=== PATIENT | male | born 1980 | race Caucasian/White ===

== ENCOUNTER 2019-06-18 07:01 | Emergency (ER) | payer BC, SELFPAY ==
--- NOTE | ~2019-06-18 | CT_ITS ---
EXAMINATION: CTA chest PE protocol DATE: 06/18/2019 08:10 INDICATION: Chest and upper back pain, wheezing TECHNIQUE: Computed tomography angiography (CTA) of the chest was performed with 100 mL Omnipaque-350 intravenous contrast timed to evaluate the pulmonary arteries. Coronal maximum intensity projection 3D-reconstructions were created by the technologist. The dose-length product (DLP) was 831.25 mGy-cm. Automated exposure control and iterative reconstruction technique were employed. COMPARISON: None. FINDINGS: The pulmonary arteries are well-opacified. No pulmonary embolism is identified. There is a 2.1 x 1.9 cm nodular opacity in the left lower lobe. There is a 6 mm nodule in association with the l eft major fissure on image 54. There is no pleural effusion or pneumothorax. Calcified pulmonary nodu les and calcified left hilar and mediastinal lymph nodes are consistent with old granulomatous diseas e. No pathologically enlarged thoracic lymph nodes are identified. The heart size is normal. Punctate calcifications in an otherwise normal spleen likely represent healed granulomatous disease. IMPRESSION: 1. Left lower lobe nodule, likely infectious/inflammatory. Recommend follow-up CT in three months. 2. No pulmonary embolism. Reviewed, dictated and finalized at location A.
--- NOTE | ~2019-06-18 | XR_ITS ---
EXAMINATION: XR chest 1V portable INDICATION: Chest and upper back pain TECHNIQUE: Portable AP chest at 0742 hours COMPARISON: 12/30/2018 FINDINGS: The lungs are free of acute opacities. There is no pleural effusion or pneumothorax. The ca rdiomediastinal silhouette is normal. The visualized bones and soft tissues are unremarkable. IMPRESSION: 1. No acute cardiopulmonary abnormality. Reviewed, dictated and finalized at location A.
[2019-06-18 07:05] VITALS: BP 155/97; PULSE 75; RESP 16; TEMP 36.6; O2SAT 97
--- NOTE | 2019-06-18 07:17 | ECG_ITS ---
Measurements Intervals [place] Rate: 71 P: 64 [place]: 134 QRS: 30 QRSD: 85 T: 30 QT: 377 QTc: 412 Interpretive Statements SINUS RHYTHM NORMAL ECG Electronically Signed On 06-18-2019 8:34:51 CDT by Phil Olivera D.O.
--- NOTE | 2019-06-18 07:19 | ED.CHESTPAIN ---
HPI - Chest Pain General Chief Complaint: Chest Pain Stated Complaint: cp, back pain Time Seen by Provider: 06/18/19 07:05 History of Present Illness HPI narrative: Patient presents via personal car for neck upper back and chest pain for 3 days. Started 3 days ago when he awoke from sleep. Mostly in his neck, but radiates down to the shoulder blades and around to the left chest. Pain in the neck and upper back is 8 out of 10, and when it goes to the chest at 7 or 8 out of 10. He has had no injury or new physical activity. He did not lift something heavy. He thought initially it might be the way he slept. 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 He has a baseline light cough and wheezing, for a year. His doctor suspects it may be a little asthma. He was to have a methacholine challenge before the COVID restrictions started. He has not had fever or chills. No vomiting nausea or diarrhea. He has not smoked cigarettes in 15 years still drinks alcohol does not do marijuana. He has not been sick in the last week or 2. He does not have the chest pain now. Related Data Home Medications Medication Instructions Recorded Confirmed omeprazole 40 mg DAILY 12/30/18 12/30/18 fluticasone propionate 50 2 spray NASAL DAILY 03/21/19 mcg/actuation nasal spray,suspension loratadine 10 mg tablet 10 mg PO DAILY 03/21/19 multivitamin 1 tablet PO DAILY 03/21/19 Allergies Allergy/AdvReac Type Severity Reaction Status Date / Time No Known Allergies Allergy Verified 06/18/19 08:23 Review of Systems Review of Systems: Narrative: CONSTITUTIONAL: Denies fever, chills, or sweats. EYES: Denies visual changes, redness, or discharge. ENT: Denies rhinorrhea, congestion, sore throat, or otalgia. CARDIOVASCULAR: Denies palpitations, or edema. RESPIRATORY: Denies dyspnea. GASTROINTESTINAL: Denies abdominal pain, nausea, vomiting, or diarrhea. GENITOURINARY: Denies dysuria or hematuria. SKIN: Denies rash or itching. MUSCULOSKELETAL: Denies joint pain, or myalgia. NEUROLOGIC: Denies headache, numbness, or weakness. PSYCHIATRIC: Denies anxiety or depression. [facility] Past Medical History Medical History Cough GERD (gastroesophageal reflux disease) HTN (hypertension) Wheezing Surgical History Surgical History H/O hernia repair H/O sinus surgery 10/2018 History of nasal septoplasty Family History Family History Mother Hypertension Father Family history of cardiovascular disease Family history of lung cancer Sibling Family history of malignant neoplasm of testis Social History Social History Smoking packs per day: 1 Smoking cigarettes per day: 20.0 Years smoked: 10 Smoking pack-years: 10.00 Smoking status: Former smoker Tobacco type: cigarettes Second hand tobacco smoke exposure: No Smoking end date: 02/07/06 Alcohol intake: current Drinks per week: 5 Substance use: never Substance use type: does not use Gender identity (if verbalized by the patient): Male Exam Narrative: Exam Narrative: GENERAL: Well-appearing, well-nourished, and in no acute distress.Shaved head, wearing a black mask. HEAD: Normocephalic, atraumatic. EYES: PERRLA and EOMI. ENT: Nares clear, no rhinorrhea or epistaxis. Mucous membranes moist. NECK: Supple. CHEST: Clear to auscultation. No respiratory distress. HEART: Regular rate and rhythm. No murmur heard. Normal peripheral pulses. ABDOMEN: Soft, nontender, nondistended, normal active bowel sounds. EXTREMITIES: Normal range of motion. No edema. SKIN: Warm, no rash, diaphoresis on his back. NEURO: No focal deficits. Alert and oriented x3. PSYCH: Normal mood and affect. Course Course Emergency Course: Reevaluation(s) Reevaluation #1: Discussed with the pat
[2019-06-18 07:27] LABS: Basophils Absolute Auto 0.1 K/mm3 (0.0-0.1); Basophils Percent Auto 0.7 % (0.2-1.2); Eosinophils Absolute Auto 0.8 K/mm3 (0-0.3); Eosinophils Percent Auto 8.7 % (0-4.4); Hematocrit 42.2 % (42.0-52.0); Hemoglobin 14.7 g/dL (14.0-18.0); Immature Granulocyte Absolute 0.01 K/mm3 (0.00-0.031); Immature Granulocyte Percent A 0.1 % (0-0.5); Lymphocytes Percent Auto 21.7 % (18.3-44.2); Mean Corpuscular HGB Conc 34.8 g/dl (32-36); Mean Corpuscular Hemoglobin 30.2 pg (26-34); Mean Corpuscular Volume 86.7 fl (80-100); Mean Platelet Volume 9.5 fl (7.4-10.4); Monocytes Absolute Auto 0.8 K/mm3 (0.1-0.6); Monocytes Percent Auto 8.6 % (2.6-8.5); Neutrophils Absolute Auto 5.3 K/mm3 (1.3-6.7); Neutrophils Percent Auto 60.2 % (45.5-73.1); Platelet Count Result 311 k/mm3 (150-375); Red Blood Count 4.87 M/mm3 (4.6-6.20); Red Cell Distribution Width 12.8 % (11.5-14.5); White Blood Count 8.8 K/mm3 (4.5-10.0)
[2019-06-18] MEDS: MORPHINE SULFATE 2 MG/ML INJ IV PUSH (07:27)
[2019-06-18 07:37] LABS: INR 0.9; Prothrombin Time 12.3 Seconds (11.1-14.7)
[2019-06-18 07:38] LABS: Partial Thromboplastin Time 27.4 SECONDS (22.3-36.8)
[2019-06-18 07:40] LABS: Alanine Aminotransferase 23 U/L (4-50); Albumin Level 4.8 g/dL (3.5-5.1); Alkaline Phosphatase 70 U/L (38-126); Aspartate Amino Transferase 27 U/L (17-59); Bilirubin,Total 0.7 mg/dL (0.2-1.3); Blood Urea Nitrogen 13 mg/dL (9-20); Calcium 9.3 mg/dL (8.4-10.2); Carbon Dioxide 26 mmol/L (22-30); Chloride 106 mmol/L (98-107); Estimated CRCL calculation 124 ml/min; Estimated Glomerular Filt Rate > 60; Glucose 112 mg/dL (75-110); Potassium 3.8 mmol/L (3.4-5.0); Sodium 141 mmol/L (137-145)
[2019-06-18 07:44] LABS: D Dimer 0.27 ug/mL (<0.48)
[2019-06-18 07:52] LABS: NT Pro B Type Natriuretic Pept 142 PG/ML (5-100); Troponin I < 0.012 ng/mL (0.000-0.034)
[2019-06-18 08:30] VITALS: BP 145/96; PULSE 71; RESP 16; O2SAT 98
[2019-06-18 09:20] VITALS: BP 136/91; PULSE 71; RESP 16; O2SAT 97
== END 2019-06-18 09:20 | disposition home or self-care (01) ==
PROVIDERS: Emergency Provider Emergency Medicine; PCP Family Medicine
DX: M54.2 Cervicalgia (principal); M54.6 Pain in thoracic spine; R07.9 Chest pain, unspecified; R91.1 Solitary pulmonary nodule; K21.9 Gastro-esophageal reflux disease without esophagitis; I10 Essential (primary) hypertension; Z87.891 Personal history of nicotine dependence
CPT/HCPCS: 36415; 71045; 71275; 80053; 83880; 84484; 85025; 85380; 85610; 85730; 93005; 96374; 99284; J2270; Q9967

== ENCOUNTER 2019-08-07 08:18 | Outpatient (CLI) | payer BC, SELFPAY ==
[2019-08-07] MEDS: SODIUM CHLORIDE 0.9% INJ 10 ML VIAL IV PUSH (10:33)
--- NOTE | 2019-08-08 14:30 | WPDPFTINT ---
PFT Interpretation PFT Interpretation: DOS: 08/06/2018 REQUESTING: Dr Alfonso Slaughter REASON FOR TESTING: wheezing, coughing, shortness of breath, former smoker METHACHOLINE CHALLENGE This test was conducted per ATS guidelines. A previous study on 07/26/2018 showed normal spirometry, FEV1 112% without airflow obstruction. The patient was exposed to sequentially increasing doses of methacholine in the usual manner. Level 1 - saline Level 2 - 0.025 mg Level 3 - 0.25 mg Level 4 - 2.5 mg Level 5 - 10 mg Level 6 - 25 mg The test was completed with all six doses of methacholine. He did not have a significant decrease in his FEV1, FVC, or XMI19-58% after administration of methacholine. Flow volume loops were normal. IMPRESSION: This is a negative methacholine challenge. The best use of a methacholine challenge is to exclude asthma. Clinical correlation is advised. Betzaida Mejias MD
== END 2019-08-07 08:19 | disposition home or self-care (01) ==
LOC: ANHPFT 08:19
PROVIDERS: PCP Family Medicine; Visit Provider Physician Assistant
DX: R06.2 Wheezing (principal); R05 Cough
CPT/HCPCS: 94070; J7674

== ENCOUNTER 2019-09-28 14:37 | Outpatient (CLI) | payer BC, SELFPAY ==
--- NOTE | ~2019-09-28 | CT_ITS ---
EXAMINATION: CT chest wo con DATE: 09/28/2019 15:20 INDICATION: Lung nodule TECHNIQUE: Computed tomography (CT) of the chest was performed without intravenous contrast. The dose -length product (DLP) was 276.30 mGy-cm. Automated exposure control and iterative reconstruction tech [employer] were employed. COMPARISON: 06/18/2019 FINDINGS: There has been interval decrease in size of previously described left lower lobe nodule whi ch measures 1.1 x 1.6 cm, previously 2.1 x 1.9 cm. Most of the interval decrease in size is related t o decrease in subpleural opacity. A stable 6 mm nodule is seen in association with the left major fis sure on image 56. There is no pleural effusion or pneumothorax. Calcified pulmonary nodules and calci fied left hilar and subcarinal lymph nodes are consistent with old granulomatous disease. No patholog ically enlarged thoracic lymph nodes are identified. The heart size is normal. Punctate calcification s in an otherwise normal spleen likely represent healed granulomatous disease. IMPRESSION: 1. Interval decrease in size of the previously described left lower lobe nodule, likely resolving inf ection/inflammation. Follow-up low-dose CT of the chest six months is recommended. Reviewed, dictated and finalized at location A. IMPRESSION: 1. Interval decrease in size of the previously described left lower lobe nodule , likely resolving infection/inflammation. Follow-up low-dose CT of the chest s ix months is recommended.
== END 2019-09-28 14:38 | disposition home or self-care (01) ==
PROVIDERS: PCP Family Medicine; Visit Provider Internal Medicine Critical Care Medicine
DX: R91.1 Solitary pulmonary nodule (principal)
CPT/HCPCS: 71250

== ENCOUNTER 2021-11-12 22:40 | Emergency (ER) | payer BC, SELFPAY ==
--- NOTE | ~2021-11-12 | XR_ITS ---
EXAMINATION: XR chest 2V DATE: 11/13/2021 00:27 INDICATION: Upper chest tightness TECHNIQUE: PA and lateral views of the chest are obtained. COMPARISON: 06/18/2019 FINDINGS: The lungs are free of acute opacities. No pleural effusion or pneumothorax. The cardiomedia stinal silhouette is normal. There is mild thoracic spondylosis. IMPRESSION: 1. No acute cardiopulmonary abnormality. Reviewed, dictated and finalized at location A.
[2021-11-12 22:44] VITALS: BP 144/77; PULSE 71; RESP 18; TEMP 36.5; O2SAT 97
[2021-11-13 01:02] LABS: Basophils Percent Auto 0.6 % (0.2-1.2); Eosinophils Absolute Auto 0.5 K/mm3 (0-0.3); Eosinophils Percent Auto 9.1 % (0-4.4); Hematocrit 38.4 % (42.0-52.0); Hemoglobin 12.7 g/dL (14.0-18.0); Immature Granulocyte Absolute 0.01 K/mm3 (0.00-0.031); Immature Granulocyte Percent A 0.2 % (0-0.5); Lymphocytes Absolute Auto 1.96 K/mm3 (0.9-3.2); Lymphocytes Percent Auto 39.7 % (18.3-44.2); Mean Corpuscular HGB Conc 33.1 g/dl (32-36); Mean Corpuscular Hemoglobin 28.9 pg (26-34); Mean Corpuscular Volume 87.5 fl (80-100); Mean Platelet Volume 9.4 fl (7.4-10.4); Monocytes Absolute Auto 0.5 K/mm3 (0.1-0.6); Monocytes Percent Auto 10.3 % (2.6-8.5); Neutrophils Percent Auto 40.1 % (45.5-73.1); Platelet Count Result 274 k/mm3 (150-375); Red Blood Count 4.39 M/mm3 (4.6-6.20); Red Cell Distribution Width 14.7 % (11.5-14.5); White Blood Count 4.9 K/mm3 (4.5-10.0)
--- NOTE | 2021-11-13 01:02 | ED.ALLEREA ---
HPI - Allergic Reaction General Chief complaint: Allergic Reaction <FELTON Caicedo Last Filed: 11/13/21 02:27> Stated complaint: allergic reaction <FELTON Caicedo Last Filed: 11/13/21 02:27> Time Seen by Provider: 11/13/21 00:05 <FELTON Caicedo Last Filed: 11/13/21 02:27> Source: patient <FELTON Caicedo Last Filed: 11/13/21 02:27> Mode of arrival: ambulatory <FELTON Caicedo Last Filed: 11/13/21 02:27> Limitations: no limitations <FELTON Caicedo Last Filed: 11/13/21 02:27> History of Present Illness HPI narrative: This is a 41 year old male that presents to the ER for a possible allergic reaction to seafood. Reports he ate a Po boy sandwich around 7pm. About an hour later he started to feel like he had swelling in the bottom of his face and reported making gurgling noises when he tried to sleep. He did take Benadryl 50mg. Reports allergy to lobster, but no other known seafood allergy. Denies swelling in the mouth or throat, or shortness of breath currently. <FELTON Caicedo Last Filed: 11/13/21 02:27> Related Data Home medications: Home Medications Medication Instructions Recorded Confirmed fluticasone propionate 50 2 spray intranasal DAILY 03/21/19 10/22/21 mcg/actuation nasal spray,suspension (Allergy Relief (fluticasone)) multivitamin (Multiple Vitamins 1 tablet PO DAILY 03/21/19 10/22/21 tablet) levocetirizine 5 mg tablet (Xyzal) 5 mg PO DAILY 07/17/19 10/22/21 <FELTON Caicedo Last Filed: 11/13/21 02:27> Allergies/adverse reactions: Allergies Allergy/AdvReac Type Severity Reaction Status Date / Time No Known Allergies Allergy Verified 11/12/21 23:48 <FELTON Caicedo Last Filed: 11/13/21 02:27> Review of Systems Review of Systems: CONSTITUTIONAL: Denies fever, chills, or sweats. RESPIRATORY: Denies dyspnea. GASTROINTESTINAL: Denies vomiting SKIN: Denies rash or itching. <Sandy Winters PA-C - Last Filed: 11/13/21 02:27> All systems reviewed & are unremarkable except as noted in HPI and below <FELTON Caicedo Last Filed: 11/13/21 02:27> PMFSH Past Medical History Medical History: Medical History Cough GERD (gastroesophageal reflux disease) HTN (hypertension) TRACI on CPAP Wheezing <FELTON Caicedo Last Filed: 11/13/21 02:27> Surgical History Surgical History: Surgical History H/O hernia repair H/O sinus surgery 10/2018 History of nasal septoplasty <FELTON Caicedo Last Filed: 11/13/21 02:27> Family History Family History: Family History Mother Hypertension Father Family history of cardiovascular disease Family history of lung cancer Sibling Family history of malignant neoplasm of testis <Sandy Winters PA-C - Last Filed: 11/13/21 02:27> Social History Social History: Social History Smoking packs per day: 1 Smoking cigarettes per day: 20.0 Years smoked: 10 Smoking pack-years: 10.00 Smoking status: Former smoker Tobacco type: cigarettes Second hand tobacco smoke exposure: No Smoking end date: 02/07/06 Alcohol intake: current Drinks per week: 5 Substance use: never Substance use type: does not use Gender identity (if verbalized by the patient): Male Sexual Orientation (if Verbalized by the Patient): Straight or Heterosexual <FELTON Caicedo Last Filed: 11/13/21 02:27> Exam Narrative: GENERAL: Well-appearing, well-nourished, and in no acute distress. HEAD: Normocephalic, atraumatic. EYES: EOMI. ENT: Nares clear, no rhinorrhea or epistaxis. Mucous membranes moist. Oropharynx without tonsillar hypertrophy exudate or other lesions. Bilateral TMs pearly
[2021-11-13 01:13] LABS: Anion Gap 10 mmol/L (8-16); Blood Urea Nitrogen 16 mg/dL (9-20); Calcium 8.8 mg/dL (8.4-10.2); Carbon Dioxide 24 mmol/L (22-30); Chloride 107 mmol/L (98-107); Estimated CRCL calculation 110 ml/min; Estimated Glomerular Filt Rate > 60; Glucose 114 mg/dL (65-110); Potassium 3.8 mmol/L (3.4-5.0); Sodium 141 mmol/L (137-145)
[2021-11-13 01:22] LABS: NT Pro B Type Natriuretic Pept < 11 pg/mL (5-100)
[2021-11-13] MEDS: FAMOTIDINE 20 MG/2 ML VIAL IV PUSH (01:37)
[2021-11-13] MEDS: methylPREDNISolone SOD SUCC 125 MG VIAL IV PUSH (01:38)
== END 2021-11-13 02:34 | disposition home or self-care (01) ==
PROVIDERS: Physician Assistant; Emergency Provider Emergency Medicine; PCP Family Medicine
DX: T78.1XXA Other adverse food reactions, not elsewhere classified, initial encounter (principal); R22.0 Localized swelling, mass and lump, head; I10 Essential (primary) hypertension; K21.9 Gastro-esophageal reflux disease without esophagitis; G47.33 Obstructive sleep apnea (adult) (pediatric); Z91.013 Allergy to seafood; Z87.891 Personal history of nicotine dependence
CPT/HCPCS: 36415; 71046; 80048; 83880; 85025; 96374; 96375; 99284; J2930

== ENCOUNTER 2021-11-23 07:25 | Observation (INO) | payer BC, SELFPAY ==
[2021-11-23] VITALS (28 sets, daily range): BP systolic 128–150; BP diastolic 72–96; PULSE 50–80; RESP 8–18; TEMP 35.7–36.5; O2SAT 95–100; BMI 29.3
--- NOTE | 2021-11-23 | ECHO_ITS ---
Patient Info Name: Gelacio Warner Age: 41 years : 1980 Gender: Male Ht: 78 in Wt: 253 lbs BSA: 2.53 m2 HR: 55 bpm BP: 141 / 84 mmHg Heart Rhythm: Sinus Rhythm, Bradycardia Technical Quality: Good Exam Date: 11/23/2021 1:45 PM Exam Location: [facility] Exam Room: [facility] Patient Status: Inpatient Admit Date: 11/23/2021 Staff Ordering Physician: Kylie Castillo APRN Lending Advisor: Cydney Mccormack RDCS Attending Provider: Dirk Mei MD Referring Physician: Jonathan FALL; Exam Type: CA echo doppler w bubble study Study Info Indications - STROKE PROTOCOL Complete two-dimensional, color flow and Doppler transthoracic echocardiogram is performed with agitated saline. Contrast/Agitated Saline Contrast/Ag. Saline: Agitated Saline Amount: 20.00 ml Administered By: Clayton Buckley ANDREA Summary 1. Left ventricular systolic function is normal, estimated at 55-60%. 2. The left ventricular diastolic function is grade I diastolic dysfunction. 3. Intact interatrial septum visualized by color flow and agitated saline imaging. 4. No significant valvular disease. Left Ventricle Left ventricular chamber dimension is normal. Left ventricular systolic function is normal, estimated at 55-60%. There is no increased left ventricular wall thickness. The left ventricular diastolic function is grade I diastolic dysfunction. Right Ventricle Right ventricular chamber dimension is normal. Left Atria Left atrial chamber dimension is normal. Right Atria Right atrial chamber dimension is normal. Atrial Septum Intact interatrial septum visualized by color flow and agitated saline imaging. Aortic Valve The aortic valve is probable trileaflet. There is no aortic valve stenosis. There is no aortic valve regurgitation. Pulmonic Valve The pulmonic valve is not well visualized. Mitral Valve The mitral valve has normal leaflets. There is no mitral valve stenosis. There is trace mitral valve regurgitation. Tricuspid Valve The tricuspid valve leaflets are normal. There is no significant tricuspid valve stenosis. There is trace tricuspid valve regurgitation. Pericardium/Pleural There is no pericardial effusion. Inferior Vena Cava Normal inferior vena cava with >50% collapse upon inspiration consistent with normal right atrial pressure, 3 mmHg. Left Ventricular Outflow Tract Name Value Normal LVOT 2D LVOT Diameter 2.1 cm LVOT Doppler LVOT Peak Gradient 5 mmHg LVOT Mean Gradient 3 mmHg LVOT VTI 23 cm LVOT VTI/AV VTI Ratio 0.8 LVOT Stroke Volume 79 ml LVOT CO 15.2 l/min LVOT CI 6.0 l/min/m2 Pulmonic Valve Name Value Normal
--- NOTE | ~2021-11-23 | XR_ITS ---
EXAMINATION: XR chest 2V DATE: 11/23/2021 08:00 INDICATION: Stroke protocol with left face and leg numbness TECHNIQUE: PA and lateral views of the chest were obtained. COMPARISON: Chest radiograph dated 11/13/2021 FINDINGS: A couple calcified nodules in the left lung along with calcified left hilar lymph nodes consistent wi th old granulomatous disease. No other airspace opacities, pulmonary edema, pleural effusion or pneum othorax. The cardiomediastinal silhouette is normal. Mild thoracic spondylosis. IMPRESSION: 1. No acute cardiopulmonary disease. Reviewed, dictated and finalized at location A.
--- NOTE | ~2021-11-23 | MR_ITS ---
EXAMINATION: MR brain/brain stem wo/w con DATE: 11/23/2021 16:03 INDICATION: Left facial numbness. TECHNIQUE: Magnetic resonance imaging (MRI) of the brain and brainstem was performed without and with 20 mL MultiHance intravenous contrast. COMPARISON: Head CT 11/23/2021 FINDINGS: There is no intracranial hemorrhage, acute infarction, or abnormal intracranial mass lesion . The ventricles are normal in size. There is extensive mucosal thickening in the paranasal sinuses. The orbits are normal. The mastoid air cells are normal. IMPRESSION: 1. Normal brain. 2. Chronic sinusitis. Reviewed, dictated and finalized at location B.
--- NOTE | ~2021-11-23 | CT_ITS ---
EXAMINATION: CT brain wo con DATE: 11/23/2021 07:55 INDICATION: Left face and left leg numbness. TECHNIQUE: Computed tomography (CT) of the head was performed without intravenous contrast. The mA wa s adjusted according to patient size. Iterative reconstruction technique was employed. The dose-lengt h product was 605.33 mGy-cm. COMPARISON: None FINDINGS: There is no intracranial hemorrhage, acute infarction, or abnormal intracranial mass lesion . The ventricles are normal in size. There are no pathologically enlarged lymph nodes. There is exten sive mucosal thickening in the paranasal sinuses with sclerosis of the sinus rene, consistent with c hronic sinusitis. The mastoid air cells are normal. There are no pathologically enlarged lymph nodes. IMPRESSION: 1. Normal brain. 2. Chronic sinusitis. Reviewed, dictated and finalized at location B.
--- NOTE | ~2021-11-23 | US_ITS ---
EXAMINATION: US carotid duplex BI DATE: 11/23/2021 16:31 INDICATION: Stroke. Left facial numbness. TECHNIQUE: Grayscale, color Doppler, and pulsed Doppler images of the cervical carotid arteries were obtained. The degree of vessel stenosis is placed in one of the following categories: normal, <50%, 5 0-69%, >=70% but less than near-occlusion, near-occlusion, or total occlusion. Note that percent sten osis relative to normal distal artery lumen diameter is indirectly measured from velocity measurement s as described by Adonay, et al. Radiology 2003; [id number]:340-346. COMPARISON: chest CT 06/18/19 FINDINGS: RIGHT: The right common carotid artery (CCA) peak systolic velocity (PSV) is 137 cm/s. The right internal ca rotid artery (ICA) PSV is 111 cm/s. The right ICA end-diastolic velocity (EDV) is 25 cm/s. The right ICA/CCA PSV ratio is 0.8. Grayscale and color Doppler images yield an estimate of <50% diameter reduc tion from plaque in the ICA. There is antegrade flow in the right vertebral artery. LEFT: The left CCA PSV is 202 cm/s. The left ICA PSV is 124 cm/s. The left ICA EDV is 31 cm/s. The left ICA /CCA PSV ratio is 0.9. Grayscale and color Doppler images yield an estimate of <50% diameter reductio n from plaque in the ICA. There is antegrade flow in the left vertebral artery. There is a prominent normal vein adjacent to left vertebral artery. IMPRESSION: 1. <50% stenosis in the right internal carotid artery. 2. <50% stenosis in the left internal carotid artery. Reviewed, dictated and finalized at location B.
--- NOTE | 2021-11-23 07:36 | ECG_ITS ---
Measurements Intervals [place] Rate: 69 P: 62 [place]: 160 QRS: 16 QRSD: 94 T: 24 QT: 417 QTc: 448 Interpretive Statements SINUS RHYTHM NORMAL ECG COMPARED TO ECG 06/18/2019 07:10:18 NO SIGNIFICANT CHANGES Electronically Signed On 11-23-2021 9:30:07 CDT by Bladimir Ernandez M.D.
--- NOTE | 2021-11-23 07:44 | ED.NEUROSD ---
HPI - Neuro Symptoms/Deficit General Chief Complaint: Neuro Symptoms/Deficit Stated Complaint: numbness in LEFT side of face, left leg Time Seen by Provider: 11/23/21 07:42 Source: patient Mode of arrival: ambulatory Limitations: no limitations History of Present Illness HPI Narrative: Patient is a 41-year-old male presenting to the emergency department for evaluation of left facial numbness, left lower extremity numbness, last known well last night November 22 at 10 PM. Patient has been ambulatory, denies vision changes or dizziness. Denies dysarthria. Denies facial droop. Patient denies recent viral illness, cough or cold symptoms. No recent known COVID diagnosis. Patient denies headache, nausea, vomiting. Denies chest pain or shortness of breath. Patient reports a tingling sensation in his left face with decreased sensation to touch as well as in the left lower extremity. Related Data Home Medications Medication Instructions Recorded Confirmed fluticasone propionate 50 2 spray intranasal DAILY 03/21/19 10/22/21 mcg/actuation nasal spray,suspension (Allergy Relief (fluticasone)) multivitamin (Multiple Vitamins 1 tablet PO DAILY 03/21/19 10/22/21 tablet) levocetirizine 5 mg tablet (Xyzal) 5 mg PO DAILY 07/17/19 10/22/21 Allergies Allergy/AdvReac Type Severity Reaction Status Date / Time No Known Allergies Allergy Verified 11/23/21 07:40 Review of Systems Review of Systems: CONSTITUTIONAL: Denies fever, chills, or sweats. EYES: Denies visual changes, redness, or discharge. ENT: Denies rhinorrhea, congestion, sore throat, or otalgia. CARDIOVASCULAR: Denies chest pain, palpitations, or edema. RESPIRATORY: Denies cough or dyspnea. GASTROINTESTINAL: Denies abdominal pain, nausea, vomiting, or diarrhea. GENITOURINARY: Denies dysuria or hematuria. SKIN: Denies rash or itching. MUSCULOSKELETAL: Denies back pain, joint pain, or myalgia. NEUROLOGIC: Denies headache, reports tingling sensation left side of face, left lower extremity, denies weakness PMFSH Past Medical History Medical History Cough GERD (gastroesophageal reflux disease) HTN (hypertension) TRACI on CPAP Wheezing Surgical History Surgical History H/O hernia repair H/O sinus surgery 10/2018 History of nasal septoplasty Family History Family History Mother Hypertension Father Family history of cardiovascular disease Family history of lung cancer Sibling Family history of malignant neoplasm of testis Social History Social History Smoking packs per day: 1 Smoking cigarettes per day: 20.0 Years smoked: 10 Smoking pack-years: 10.00 Smoking status: Former smoker Tobacco type: cigarettes Second hand tobacco smoke exposure: No Smoking end date: 02/07/06 Alcohol intake: current Drinks per week: 5 Substance use: never Substance use type: does not use Gender identity (if verbalized by the patient): Male Sexual Orientation (if Verbalized by the Patient): Straight or Heterosexual Exam Narrative: GENERAL: Awake, alert, conversant HEAD: Normocephalic, atraumatic. EYES: PERRLA and EOMI. Patient with smaller appearing left eye when compared to right, states this is chronic. ENT: Nares clear, no rhinorrhea or epistaxis. Mucous membranes moist. NECK: Supple. CHEST: No respiratory distress, breathing even and non labored HEART: Regular rate, sinus rhythm ABDOMEN:Non distended, non tender EXTREMITIES: Normal range of motion. No edema. SKIN: Warm, dry, no rash. NEURO:No focal deficits. Alert and oriented x3. Finger to nose intact bilaterally. EOMs intact without nystagmus. No facial droop/asymmetry noted bilaterally. Grimace intact. Intact sensation in face, however patient reports it is slightly dimi
[2021-11-23] MEDS: SODIUM CHLORIDE 0.9% IV 1,000 ML 999 ML IV CONT (07:49)
--- NOTE | 2021-11-23 07:51 | PC.NURSE ---
Pt to CT.
[2021-11-23 07:59] LABS: Basophils Absolute Auto 0.1 K/mm3 (0.0-0.1); Eosinophils Absolute Auto 0.5 K/mm3 (0-0.3); Hematocrit 40.3 % (42.0-52.0); Hemoglobin 13.5 g/dL (14.0-18.0); Lymphocytes Absolute Auto 2.01 K/mm3 (0.9-3.2); Lymphocytes Percent Auto 41.9 % (18.3-44.2); Mean Corpuscular HGB Conc 33.5 g/dl (32-36); Mean Corpuscular Hemoglobin 28.7 pg (26-34); Mean Corpuscular Volume 85.6 fl (80-100); Mean Platelet Volume 9.3 fl (7.4-10.4); Monocytes Absolute Auto 0.6 K/mm3 (0.1-0.6); Monocytes Percent Auto 11.5 % (2.6-8.5); Neutrophils Absolute Auto 1.7 K/mm3 (1.3-6.7); Neutrophils Percent Auto 35.6 % (45.5-73.1); Platelet Count Result 282 k/mm3 (150-375); Red Blood Count 4.71 M/mm3 (4.6-6.20); Red Cell Distribution Width 14.2 % (11.5-14.5); White Blood Count 4.8 K/mm3 (4.5-10.0)
[2021-11-23 08:08] LABS: Anion Gap 12 mmol/L (8-16); Blood Urea Nitrogen 13 mg/dL (9-20); Calcium 9.2 mg/dL (8.4-10.2); Carbon Dioxide 26 mmol/L (22-30); Chloride 104 mmol/L (98-107); Estimated CRCL calculation 100 ml/min; Estimated Glomerular Filt Rate > 60; Glucose 114 mg/dL (65-110); Potassium 3.6 mmol/L (3.4-5.0); Sodium 142 mmol/L (137-145)
[2021-11-23 08:16] LABS: Partial Thromboplastin Time 28.1 SECONDS (22.3-36.8); Prothrombin Time 12.4 Seconds (11.1-14.7)
[2021-11-23 08:21] LABS: Troponin I < 0.012 ng/mL (0.000-0.034)
[2021-11-23 08:47] LABS: Add Urine Microscopic? NO; Appearance Urine Clear (Clear); Bilirubin Urine Negative (Negative); Blood Urine Negative (Negative); Color Urine Straw (Yellow); Glucose Urine UA Negative (Negative); Ketones Urine Negative (Negative); Leukocyte Esterase Ur Negative LEU/UL (Negative); Nitrate Urine Negative (Negative); Protein Urine Negative (Negative); Urobilinogen Urine Negative mg/dL (<2.0)
[2021-11-23 08:49] LABS: Specific Grav Ur 1.003 (1.001-1.035)
--- NOTE | 2021-11-23 10:04 | PM.IMHP ---
H&P: HPI History of Present Illness Date/Time: 11/23/21 10:04 Chief Complaint: left face and left leg numbness Narrative: Gelacio Warner is a 41 yo male with hypertension, GERD, chronic sinusitis and TRACI compliant with CPAP who presented to the ED for evaluation of left facial numbness and left lower leg numbness that started at approximately 2200 last night. He states that the pain started in his left leg yesterday and upon arising today, he noticed left lower jaw and face numbness. He reports prior to this he was in his usual health, except for recently was diagnosed with a shellfish allergy after eating mahe mahe. He denies eating any seafood recently. No new medications or sick contacts. He denies ever having similar symptoms. No fever, chills, chest pain, shortness of breath, slurred speech, disorientation, confusion, word finding, vision changes or gait changes. He has intermittent episodes of dizziness with reposition changes, but no episodes of syncope. In the ED, he was mildly hypertensive BP 149/72 and HR 54-61 bpm, but vitals were otherwise stable and he was afebrile. Lab work showed unremarkable CBC, CMP, coagulation panel and troponin. UA was negative for acute infection. EKG showed normal sinus rhythm. CT head was without acute disease and chest x-ray was negative. Neurology was consulted in the ED. The patient was admitted for further evaluation of ischemic stroke. Review of Systems Review of Systems: All systems reviewed & are unremarkable except as noted in HPI and below Constitutional: Constitutional: Reports as per HPI and Reports no additional constitutional complaints Eyes: Eyes: Reports as per HPI and Reports no additional eye complaints ENT: Reports system reviewed and no additional complaints, except as documented Cardiovascular: Cardiovascular: Reports no additional cardiovascular complaints Respiratory: Respiratory: Reports no additional respiratory complaints Gastrointestinal: Gastrointestinal: Reports no additional gastrointestinal complaints Genitourinary: Genitourinary: Reports no additional male genitourinary complaints Musculoskeletal: Musculoskeletal: Reports no additional musculoskeletal complaints Integumentary/Breasts: Skin/Breast: Reports system reviewed and no additional complaints, except as docu Neurologic: Reports system reviewed and no additional complaints, except as documented, Reports as per HPI and Reports numbness (left lower face and left lower extremity) Psychiatric: Psychiatric: Reports no additional psychiatric complaints PMFSH Past Medical History Medical History (Updated 11/23/21 @ 16:08 by Kylie Castillo APRN) Chronic sinusitis GERD (gastroesophageal reflux disease) HTN (hypertension) TRACI on CPAP Sensorineural hearing loss (SNHL) of both ears Mild Surgical History Surgical History (Updated 11/23/21 @ 16:08 by Kylie Castillo APRN) H/O hernia repair H/O sinus surgery 10/2018 History of esophageal dilatation History of nasal septoplasty Family History Family History (Updated 11/23/21 @ 16:10 by Kylie Castillo APRN) Mother Hypertension Atrial fibrillation TIA (transient ischemic attack) Father Family history of cardiovascular disease Acute myocardial infarction, Onset Age: 45 Multiple AMI Lung cancer Sibling Testicular cancer Social History Social History (Updated 11/23/21 @ 16:12 by Kylie Castillo APRN) Smoking packs per day: 1 Smoking cigarettes per day: 20.0 Years smoked: 10 Smoking pack-years: 10.00 Smoking status: Former smoker Tobacco type: cigarettes Second hand tobacco smoke exposure: No Alcohol intake: current Drinks per week: 5 Alcohol use details: on weekends Substance use: former Substance use type: former substance user and crack/cocaine Last use: occasional, more than 15 years ago Living arrangements: with family Occupation/Education: occupation Additional occupation/educa
[2021-11-23 10:26] LABS: SARS-CoV-2 RNA PCR Negative
[2021-11-23 10:33] LABS: Cholesterol 167 mg/dL (0-200); HDL Direct 46 mg/dL; Triglycerides 113 mg/dL (<150)
[2021-11-23 10:44] LABS: LDL Cholesterol Direct 89 mg/dL
[2021-11-23 11:44] LABS: Hemoglobin A1C 5.5 % (<5.7)
--- NOTE | 2021-11-23 14:43 | ADMGEN ---
This patient, Gelacio Warner, was admitted to 3 [facility] Surg Room 312-01 at 1420. Patient/family oriented to hospital policies and general routines including ID bracelet, bed and alarms, visiting hours, pain management, procedures, bathroom and other care routines, personal items, smoking policy, room service/diet, and visiting hours. Information on how to activate the Rapid Response Team has been discussed. Patient/Family are encouraged to report perceived risks to care and to ask questions if they do not understand what they are told or what they should do.
[2021-11-23] MEDS: ASPIRIN 81 MG CHEWABLE TABLET 324 MG PO (17:29)
[2021-11-23] MEDS: WATER FOR IRRIGATION, STERILE 1,000 ML BOTTLE 1000 ML (23:32)
[2021-11-24] VITALS (7 sets, daily range): BP systolic 127–148; BP diastolic 72–80; PULSE 53–80; RESP 17–18; TEMP 36.3; O2SAT 95–100
[2021-11-24 06:13] LABS: Hematocrit 39.5 % (42.0-52.0); Hemoglobin 13.3 g/dL (14.0-18.0); Mean Corpuscular HGB Conc 33.7 g/dl (32-36); Mean Corpuscular Volume 86.1 fl (80-100); Mean Platelet Volume 9.8 fl (7.4-10.4); Platelet Count Result 275 k/mm3 (150-375); Red Blood Count 4.59 M/mm3 (4.6-6.20); Red Cell Distribution Width 14.3 % (11.5-14.5); White Blood Count 5.5 K/mm3 (4.5-10.0)
[2021-11-24 06:34] LABS: Anion Gap 14 mmol/L (8-16); Blood Urea Nitrogen 13 mg/dL (9-20); Calcium 8.7 mg/dL (8.4-10.2); Carbon Dioxide 24 mmol/L (22-30); Chloride 103 mmol/L (98-107); Estimated CRCL calculation 110 ml/min; Estimated Glomerular Filt Rate > 60; Glucose 111 mg/dL (65-110); Potassium 3.7 mmol/L (3.4-5.0); Sodium 141 mmol/L (137-145)
[2021-11-24 08:21] LABS: Magnesium 2.1 mg/dL (1.6-2.3)
[2021-11-24 08:36] LABS: Folic Acid 16.5 ng/mL (2.76->20)
[2021-11-24] MEDS: PANTOPRAZOLE 40 MG TABLET PO (09:28)
[2021-11-24] MEDS: amLODIPine BESYLATE 5 MG TABLET 10 MG PO (09:28)
[2021-11-24] MEDS: FLUTICASONE PROPIONATE 0.05% NA SPR 16 GM BTL (*BKC) 2 SPRAY NASAL (09:29)
[2021-11-24] MEDS: LOSARTAN POTASSIUM 100 MG TABLET PO (09:29)
[2021-11-24] MEDS: MONTELUKAST SODIUM 10 MG TABLET PO (09:29)
[2021-11-24] MEDS: ASPIRIN 81 MG ENTERIC TABLET PO (09:32)
--- NOTE | 2021-11-24 13:10 | WPDNEURCNPN ---
Assessment and Plan Assessment and plan (1) Left facial numbness: Code(s): R20.0 - Anesthesia of skin Status: Acute (2) Left leg numbness: Code(s): R20.0 - Anesthesia of skin Status: Acute (3) TIA (transient ischemic attack): Code(s): G45.9 - Transient cerebral ischemic attack, unspecified Status: Acute Plan considering negative MRI of the brain not suggestive of underlying demyelinating disease normal carotid studies, echocardiogram can be obtained if that study is negative he can be discharged on aspirin 81 mg daily with the diagnosis of TIA Consult date: 11/24/21 Time Seen: 11:45 HPI: Gelacio Warner is a 41 year old male admitted to the hospital through the emergency room for the evaluation of left-sided facial numbness and left lower extremity numbness with history of being last normal on 11/22 at 10:00 p.m. patient reportedly ambulatory with no visual difficulties her is speech difficulties and no history of any other associated generalized illnesses also with no history of recent known COVID disease has been taking only general medications and was not allergic to any medications past history is consistent with GERD hypertension and obstructive sleep apnea for which patient is on CPAP years smoked 10 no former smoker his smoking and date 02/23 alcohol intake current 5 drinks per week initial vital signs stable and normal considering the possibility cerebrovascular accident and other neurological etiology patient was admitted to the hospital for further evaluation particularly MRI of the brain CBC in the ER was normal and so as the basic metabolic panel hemoglobin A1c only 5.5 CT scan of the head without evidence of bleed chest x-ray negative an MRI today with no evidence of any acute lesion in reference to the stroke or the demyelinating disease except the chronic sinusitis, has been receiving amlodipine daily in addition to losartan 100 mg daily Review of Systems Review of Systems: All systems reviewed & are unremarkable except as noted in HPI and below PMFSH Past Medical History Medical History (Updated 11/24/21 @ 13:18 by Surendra Cabello MD) Chronic sinusitis GERD (gastroesophageal reflux disease) HTN (hypertension) TRACI on CPAP Sensorineural hearing loss (SNHL) of both ears Mild Surgical History Surgical History (Updated 11/23/21 @ 16:08 by Kylie Castillo APRN) H/O hernia repair H/O sinus surgery 10/2018 History of esophageal dilatation History of nasal septoplasty Family History Family History (Updated 11/23/21 @ 16:10 by Kylie Castillo APRN) Mother Hypertension Atrial fibrillation TIA (transient ischemic attack) Father Family history of cardiovascular disease Acute myocardial infarction, Onset Age: 45 Multiple AMI Lung cancer Sibling Testicular cancer Social History Social History (Updated 11/23/21 @ 16:12 by Kylie Castillo APRN) Smoking packs per day: 1 Smoking cigarettes per day: 20.0 Years smoked: 10 Smoking pack-years: 10.00 Smoking status: Former smoker Tobacco type: cigarettes Second hand tobacco smoke exposure: No Alcohol intake: current Drinks per week: 5 Alcohol use details: on weekends Substance use: former Substance use type: former substance user and crack/cocaine Last use: occasional, more than 15 years ago Living arrangements: with family Occupation/Education: occupation 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
--- NOTE | 2021-11-24 14:40 | PM.DS ---
DS: Admitting Diagnosis Discharge Date 11/24/2021 1441 Admitting Diagnosis Paresthesia left face Paresthesia left lower leg Essential hypertension DS: Discharge Diagnosis Discharge Diagnosis (1) TIA (transient ischemic attack): Code(s): G45.9 - Transient cerebral ischemic attack, unspecified Status: Acute Assessment and Plan: paresthesia to left lower face and left lower leg. R/O ischemic stroke. CT head negative for acute disease.? MRI brain pending Echocardiogram with bubble study completed and negative PFO Carotid US <50% stenosis R/L ICA? monitor telemetry - SR no ectopy or arrhythmia? tsh, a1c, and b12 with folate within normal limits LDL 89, HDL 46, triglycerides 113 resume antihypertensives as BP tolerates ASA 81 mg daily. Give full strength aspirin x1 now He is a former smoker? Neurology consulted and appreciate recommendations.? (2) Left facial numbness: Code(s): R20.0 - Anesthesia of skin Status: Acute Assessment and Plan: as above (3) Numbness of left lower extremity: Code(s): R20.0 - Anesthesia of skin Status: Acute Assessment and Plan: as above PT/OT evaluation - no deficit (4) Essential (primary) hypertension: Code(s): I10 - Essential (primary) hypertension Status: Acute Assessment and Plan: Chronic, stable Resume antihypertensives. (5) TRACI on CPAP: Code(s): G47.33 - Obstructive sleep apnea (adult) (pediatric); Z99.89 - Dependence on other enabling machines and devices Status: Acute Assessment and Plan: Chronic, stable. Continue cpap at home settings. Patient to bring in his own machine. (6) Chronic GERD: Code(s): K21.9 - Gastro-esophageal reflux disease without esophagitis Status: Acute Assessment and Plan: Chronic, stable. Continue PPI therapy DS: Summary Hospital Course Reason for hospitalization: Left face and left leg numbness Hospital Course: Gelacio Warner is a 41 yo male with hypertension, GERD, chronic sinusitis and TRACI compliant with CPAP, who presented to the ED for evaluation of left facial numbness and left lower leg numbness that started at approximately 2200 the night prior to admission. He stated that the decreased sensation started in his left leg the previous day, was worse the morning of admission and he noticed left lower jaw and face numbness. He reported prior to this he was in his usual health, except for recently was diagnosed with a shellfish allergy after eating elder friedman. He denied eating any seafood recently. No new medications or sick contacts. He denied ever having similar symptoms. No fever, chills, chest pain, shortness of breath, slurred speech, disorientation, confusion, word finding, vision changes or gait changes. He has intermittent episodes of dizziness with reposition changes, but no episodes of syncope. In the ED, he was mildly hypertensive BP 149/72 and HR 54-61 bpm, but vitals were otherwise stable and he was afebrile. Lab work showed unremarkable CBC, CMP, coagulation panel and troponin. UA was negative for acute infection. EKG showed normal sinus rhythm. CT head was without acute disease and chest x-ray was negative for abnormal findings. Neurology was consulted in the ED and agreed to see the patient. The patient was admitted for further evaluation of TIA or ischemic stroke. He was monitored on telemetry and did not demonstrate arrhythmia. Brain MRI was negative for acute infarct. Carotid US showed <50% stenosis in the right and left ICA. Transthoracic echocardiogram showed no LV systolic dysfunction, EF 55-60%, grade 1 diastolic dysfunction and no intraarterial septal defect. TSH, B12, and folate were within normal limits. A1c was 5.5%. Lipid panel showed LDL 89, triglycerides 113, and HDL 46. He was started on aspirin 81 mg PO daily and lipitor 20 mg daily for TIA. Goal LDL<70. He was continued on Losartan 100 mg and amlodipine 10 mg fabio
[2021-11-24] MEDS: ATORVASTATIN 20 MG TABLET PO (15:19)
[2021-11-24] MEDS: hydroCHLOROthiazide 12.5 MG CAPSULE PO (15:19)
[2021-11-24] MEDS: POTASSIUM CHLORIDE 20 MEQ TABLET 40 MEQ PO (15:19)
== END 2021-11-24 16:10 | disposition home or self-care (01) ==
LOC: ANHED 11:54 → ANH3MEDSUR 12:24
PROVIDERS: Nurse Practitioner Family; Admitting Provider Family Medicine; Emergency Provider Emergency Medicine; PCP Family Medicine; Visit Provider Family Medicine
DX: G45.9 Transient cerebral ischemic attack, unspecified (principal); R20.0 Anesthesia of skin; I11.9 Hypertensive heart disease without heart failure; G47.33 Obstructive sleep apnea (adult) (pediatric); Z99.89 Dependence on other enabling machines and devices; K21.9 Gastro-esophageal reflux disease without esophagitis; R05.9 Cough, unspecified; R06.2 Wheezing; Z20.822 Contact with and (suspected) exposure to COVID-19; H90.3 Sensorineural hearing loss, bilateral; J32.9 Chronic sinusitis, unspecified; R29.701 NIHSS score 1; Z87.891 Personal history of nicotine dependence; Z79.51 Long term (current) use of inhaled steroids; Z79.899 Other long term (current) drug therapy; Z82.49 Family history of ischemic heart disease and other diseases of the circulatory system; Z82.3 Family history of stroke
CPT/HCPCS: 36415; 70450; 70553; 71046; 80048; 80061; 81003; 82607; 82746; 83036; 83735; 84443; 84484; 85025; 85027; 85610; 85730; 93005; 93306; 93880; 96360; 96375; 97161; 97165; 99285; A9270; A9577; C9803; G0378; J7030; U0003; U0005

== ENCOUNTER 2021-12-01 08:21 | Outpatient (CLI) | payer BC, SELFPAY ==
[2021-12-01 09:13] LABS: Anion Gap 11 mmol/L (8-16); Blood Urea Nitrogen 16 mg/dL (9-20); Carbon Dioxide 25 mmol/L (22-30); Chloride 104 mmol/L (98-107); Estimated Glomerular Filt Rate > 60; Glucose 105 mg/dL (65-110); Potassium 3.8 mmol/L (3.4-5.0); Sodium 140 mmol/L (137-145)
== END 2021-12-01 08:22 | disposition home or self-care (01) ==
LOC: ANHLAB 08:22
PROVIDERS: PCP Family Medicine; Visit Provider Nurse Practitioner Family
DX: I10 Essential (primary) hypertension (principal)
CPT/HCPCS: 36415; 80048

== ENCOUNTER 2021-12-14 01:09 | Day surgery (SDC) | payer BC, SELFPAY ==
[2021-12-07 13:43] VITALS: BMI 28.9
--- NOTE | 2021-12-13 19:54 | PM.HPGS ---
History of Present Illness History of Present Illness Consent: Risks, benefits, and alternatives have been discussed and questions answered. Patient agrees to proceed with procedure. Chief complaint: Rectal Bleed Narrative: Gelacio Warner is a 41 year old male referred for investgation of rectal bleeding he has occasionally seen some blood in his stools over last couple of years. Recently however he had a quite massive bleed. He was not even having a bowel movement at that time and blood-filled is underwear. He denies rectal pain or abdominal pain. He does occasionally get somewhat constipated. He admits that he may sit quite a while on the toilet, waiting to have a bowel movement or using his phone. Review of Systems Review of Systems: All systems reviewed & are unremarkable except as noted in HPI and below PMFSH Past Medical History Medical History Chronic sinusitis GERD (gastroesophageal reflux disease) HTN (hypertension) TRACI on CPAP Sensorineural hearing loss (SNHL) of both ears Mild Surgical History Surgical History H/O hernia repair H/O sinus surgery 10/2018 History of esophageal dilatation History of nasal septoplasty Family History Family History Mother Hypertension Atrial fibrillation TIA (transient ischemic attack) Father Family history of cardiovascular disease Acute myocardial infarction, Onset Age: 45 Multiple AMI Lung cancer Sibling Testicular cancer Social History Social History Smoking packs per day: 1 Smoking cigarettes per day: 20.0 Years smoked: 10 Smoking pack-years: 10.00 Smoking status: Former smoker Tobacco type: cigarettes Second hand tobacco smoke exposure: No Alcohol intake: current Drinks per week: 4 Alcohol use details: on weekends Substance use: never Substance use type: does not use Last use: occasional, more than 15 years ago Living arrangements: with family 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 Gender identity (if verbalized by the patient): Male Sexual Orientation (if Verbalized by the Patient): Straight or Heterosexual Spiritual care concerns: No Meds Home Medications and Allergies Home Medications Medication Instructions Recorded Confirmed Type fluticasone propionate 50 2 spray intranasal DAILY 03/21/19 12/07/21 History mcg/actuation nasal spray,suspension (Allergy Relief (fluticasone)) multivitamin (Multiple Vitamins 1 tablet PO DAILY 03/21/19 12/07/21 History tablet) levocetirizine 5 mg tablet (Xyzal) 5 mg PO DAILY 07/17/19 12/07/21 History amlodipine 10 mg tablet See Rx Instructions .Route 04/22/21 12/07/21 Rx .COMPLEX #90 tabs losartan 100 mg tablet 100 mg PO DAILY #90 tabs 04/22/21 12/07/21 Rx montelukast 10 mg tablet 10 mg PO DAILY #90 tabs 04/22/21 12/07/21 Rx (Singulair) omeprazole 40 mg capsule,delayed 40 mg PO DAILY #90 caps 04/22/21 12/07/21 Rx release atorvastatin 20 mg tablet 20 mg PO DAILY #30 tabs 11/24/21 12/07/21 Rx potassium chloride 20 mEq 20 meq PO DAILY #30 tabs 11/24/21 12/07/21 Rx tablet,extended release aspirin 81 mg tablet,delayed 81 mg PO QAM #90 tabs 12/11/21 12/14/21 Rx release hydrochlorothiazide 12.5 mg capsule 12.5 mg PO QAM #90 caps 12/11/21 12/14/21 Rx Allergies Allergy/AdvReac Type Severity Reaction Status Date / Time shellfish derived Allergy Severe Difficulty Verified 12/14/21 09:37 Breathing Exam Resp: Auscultation: clear to auscultation bilaterally Cardio: Rate: regular rate Rhythm: regular rhythm GI: GI Palp: Yes Soft to palpation and No Tenderness to palpation present (GI) Assessment and Plan Assessment and plan (1) Blood in stool: Code(s): K92.1 - [facility] [address]
[2021-12-14 09:39] VITALS: BP 138/78; PULSE 60; RESP 18; TEMP 36.4; O2SAT 98; BMI 28.3
[2021-12-14] MEDS: LACTATED RINGERS 1,000 ML 150 ML IV CONT (09:45)
[2021-12-14] MEDS: SIMETHICONE ORAL SUSPENSION 20 MG/0.3 ML 30 ML BOTTLE 0.6 ML IRRIGATION (11:14)
[2021-12-14 11:22] VITALS: BP 100/67; PULSE 59; RESP 17; O2SAT 100
[2021-12-14 11:32] VITALS: BP 102/64; PULSE 51; RESP 13; O2SAT 98
[2021-12-14 11:42] VITALS: BP 115/71; PULSE 53; RESP 17; O2SAT 100
== END 2021-12-14 11:57 | disposition home or self-care (01) ==
PROVIDERS: PCP Family Medicine; Visit Provider Internal Medicine Gastroenterology
PROC: 0DJD8ZZ Inspection of Lower Intestinal Tract, Via Natural or Artificial Opening Endoscopic (ICD-10-PCS; CPT 45378; principal; 2021-12-14 11:00)
DX: Z12.11 Encounter for screening for malignant neoplasm of colon (principal); K64.8 Other hemorrhoids; K92.1 Melena; I10 Essential (primary) hypertension; G47.33 Obstructive sleep apnea (adult) (pediatric); K21.9 Gastro-esophageal reflux disease without esophagitis; Z87.891 Personal history of nicotine dependence; Z79.82 Long term (current) use of aspirin
CPT/HCPCS: 45378; J2704; J7120

== ENCOUNTER 2022-02-03 00:56 | Day surgery (SDC) | payer BC, SELFPAY ==
[2022-02-02 12:23] VITALS: BMI 27.7
[2022-02-03] VITALS (8 sets, daily range): BP systolic 106–126; BP diastolic 59–82; PULSE 51–57; RESP 10–17; TEMP 36.5; O2SAT 97–100; BMI 28.1
--- NOTE | 2022-02-03 10:12 | WPDHPUPDATE1 ---
History and Physical Update Update Date/Time: 02/03/22 10:12 History and Physical has been reviewed, including an updated exam of the patient. There are NO changes in the patient's condition. Risks, benefits, and alternatives have been discussed and questions answered. Patient agrees to proceed with procedure.
--- NOTE | 2022-02-03 10:12 | WPDMODSED ---
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 Impression/plan of care: Cryptogenic TIA versus CVA-implantable loop recorder Hypertension TRACI on CPAP LVH Diastolic dysfunction Further recommendations follow. Post implant precautions. Allergies Allergy/AdvReac Type Severity Reaction Status Date / Time shellfish derived Allergy Severe Difficulty Verified 02/03/22 09:18 Breathing Home Medications Medication Instructions Recorded Confirmed Type levocetirizine 5 mg tablet (Xyzal) 5 mg PO DAILY 07/17/19 02/03/22 History losartan 100 mg tablet 100 mg PO DAILY #90 tabs 04/22/21 02/03/22 Rx montelukast 10 mg tablet 10 mg PO DAILY #90 tabs 04/22/21 02/02/22 Rx (Singulair) omeprazole 40 mg capsule,delayed 40 mg PO DAILY #90 caps 04/22/21 02/02/22 Rx release hydrochlorothiazide 12.5 mg capsule 12.5 mg PO QAM #90 caps 12/11/21 02/03/22 Rx aspirin 81 mg tablet,delayed 81 mg PO QAM #90 tabs 12/15/21 02/02/22 Rx release atorvastatin 20 mg tablet 20 mg PO DAILY #90 tabs 12/18/21 02/03/22 Rx potassium chloride 20 mEq 20 meq PO DAILY #90 tabs 12/18/21 02/02/22 Rx tablet,extended release amlodipine 10 mg tablet 10 mg PO DAILY 02/02/22 02/03/22 History fluticasone propionate 93 1 spray intranasal BID 02/02/22 02/03/22 History mcg/actuation breath activated aerosol (Xhance) Sedation/Anesthesia: No previous sedation/anesthesia problems (including family history). [facility] Past Medical History Medical History Chronic sinusitis GERD (gastroesophageal reflux disease) HTN (hypertension) TRACI on CPAP Sensorineural hearing loss (SNHL) of both ears Mild Surgical History Surgical History H/O hernia repair H/O sinus surgery 10/2018 History of esophageal dilatation History of nasal septoplasty Family History Family History Mother Hypertension Atrial fibrillation TIA (transient ischemic attack) Father Family history of cardiovascular disease Acute myocardial infarction, Onset Age: 45 Multiple AMI Lung cancer Sibling Testicular cancer Social History Social History Smoking packs per day: 1 Smoking cigarettes per day: 20.0 Years smoked: 10 Smoking pack-years: 10.00 Smoking status: Former smoker Tobacco type: cigarettes Second hand tobacco smoke exposure: No Additional smoking assessment comments: quit 15years ago Alcohol intake: current Drinks per week: 4 Alcohol use details: on weekends Substance use: former Substance use type: marijuana Last use: occasional, more than 15 years ago Living arrangements: with family 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
--- NOTE | 2022-02-03 10:20 | P.OPB_ITS ---
Procedure Note - Brief Procedure Note - Brief Date of procedure: 02/03/22 Pre-op diagnosis: cva Cryptogenic CVA/TIA Procedure performed: Implantable loop recorder Description of procedure: Brief History of Present Illness: Patient is a very pleasant 41-year-old male with history of hypertension, LVH, diastolic dysfunction, TRACI on CPAP with in November 2021 presented with stroke- like symptoms which persisted greater than 24 hours concern for CVA with negative CT and MRI yet without explanation and unremarkable 30 day supervisor records change for which implantable loop recorder was advised for further evaluation for cryptogenic stroke and evaluation for as yet undiagnosed atrial fibrillation and/or atrial flutter. After verbal and written informed consent was obtained from the patient risks, benefits, and alternatives explained in detail the patient agreed to proceed with the plan of care as outlined above. Patient was evaluated at bedside in the [facility] procedure room. Patient was placed the appropriate supine position. Left anterior chest wall was prepped and draped in the usual sterile fashion. Operators in appropriate sterile garb. The left 4th intercostal space was identified and marked. Utilizing approximately 20 cc of 1% subcutaneous lidocaine the left anterior chest wall was then locally anesthetized. After local anesthesia was achieved, 2 fingerbreadths left of the sternum at the 4th intercostal space was again identified and a 1 cm incision was made with the included skin punch tool. Following this with the included introducer, a tract was made subcutaneously at a 45 degree angle from the sternum. The introducer was then inverted 180 degrees and with the included plunger the Medtronic REVEAL LINQ II loop recorder was advanced subcutaneously into position easily and without complication. The plunger was then removed followed by the introducer. Manual pressure was held for least 5-10 min with excellent hemostasis. The device was then interrogated and revealed excellent fidelity and measured at 0.46mV. The Medtronic REVEAL LINQ II SN [id number] was implanted without complication. The incision was then approximated and closed using Exofin skin adhesive and covered. dressing. Complications: None Implants: Medtronic Reveal LINQ II Surgeon: Georges Arias MD Estimated blood loss (mL): 0 Complications: No immediate complications Condition: Stable Disposition: Same day Findings: Successful implantation of Medtronic Reveal LINQ II [id number] without complication.
== END 2022-02-03 11:05 | disposition home or self-care (01) ==
PROVIDERS: PCP Family Medicine; Visit Provider Internal Medicine Cardiovascular Disease
PROC: (CPT 33285; principal; 2022-02-03 10:00)
DX: I63.9 Cerebral infarction, unspecified (principal); I11.9 Hypertensive heart disease without heart failure; G47.33 Obstructive sleep apnea (adult) (pediatric); K21.9 Gastro-esophageal reflux disease without esophagitis; H90.3 Sensorineural hearing loss, bilateral; Z87.891 Personal history of nicotine dependence; Z79.82 Long term (current) use of aspirin
CPT/HCPCS: 33285; C1764

== ENCOUNTER 2022-05-13 08:04 | Outpatient (CLI) | payer BC, SELFPAY ==
[2022-05-13 08:40] LABS: Anion Gap 8 mmol/L (8-16); Blood Urea Nitrogen 15 mg/dL (9-20); Calcium 8.8 mg/dL (8.4-10.2); Carbon Dioxide 30 mmol/L (22-30); Chloride 102 mmol/L (98-107); Estimated Glomerular Filt Rate > 60; Glucose 103 mg/dL (65-110); Potassium 4.4 mmol/L (3.4-5.0); Sodium 140 mmol/L (137-145)
== END 2022-05-13 08:05 | disposition home or self-care (01) ==
PROVIDERS: Anesthesiology; PCP Family Medicine; Visit Provider Otolaryngology
DX: I10 Essential (primary) hypertension (principal); Z01.818 Encounter for other preprocedural examination
CPT/HCPCS: 36415; 80048

== ENCOUNTER 2022-05-17 00:37 | Day surgery (SDC) | payer BC, SELFPAY ==
[2022-05-10 13:35] VITALS: BMI 27.7
--- NOTE | 2022-05-10 13:40 | PC.NURSE ---
Report to the Outpatient Waiting Room, entrance under the green pavilion located off [facility], at time _0830_ on date _[id number]_. Planned Procedure Time: _1030_. Time changes happen often and if your time is changed the preop area will call you the afternoon before. - You and your visitor will be asked to self-screen and do not enter if you have any COVID symptoms. - Only one visitor is requested with a max of two and NO children visitors are allowed at this time. - The patient visitor may be requested to leave or wait in car when not with patient due to distancing restrictions. - A mask is optional within the hospital at this time. Patients may have clear liquids (water, carbonated beverages, clear teas, apple juice) until 3 hours prior to surgery with a maximum of 20 ounces. - No food from midnight until time of surgery Take the following medications with a SIP of water the morning of surgery: __Amlodipine and Flonase DO NOT STOP ANY OF YOUR OTHER PRESCRIPTION MEDICATIONS PRIOR TO SURGERY ?EXCEPT THE FOLLOWING Medications to discontinue per physician Date to take last dose Please no make-up, nail kiswahili, hairspray, perfume, deodorant, or body powder the day of surgery. No jewelry (including any body piercings) or valuables the day of surgery, leave them at home. Please take a shower or bath the night before, or the morning of, surgery with an antibacterial soap. Wear comfortable, loose fitting clothing. - Jewelry must be removed prior to entering the operating room. Rings and piercings that are not removed may be cut off. - The hospital will not accept responsibility for valuables. - Please leave all valuables, including medications, at home the day of surgery. If you are going home after surgery, a licensed service parts driver must drive you home. - NO public transportation without another adult if you receive anesthesia. - We recommend that an adult stay with you for 24 hours following discharge. - We also recommend that you do not drive, make important decision, drink alcoholic beverages, or take any drugs that were not prescribed by your health care provider for at least 24 hours after your discharge time. Follow any additional instructions given to you from your surgeon. If you or anyone in your household have experienced Covid symptoms in the past week, please notify your surgeon or the nurse liaison at the phone number below for possible testing. Telephone instructions given to _Patient____and asked if any additional questions and then verbalized understanding. Patient advised to call surgeon office or pre surgery nurse liaison [phone] if any additional questions.
[2022-05-17] VITALS (9 sets, daily range): BP systolic 107–138; BP diastolic 50–92; PULSE 50–67; RESP 12–18; TEMP 36.1–36.3; O2SAT 93–100
[2022-05-17] MEDS: ACETAMINOPHEN 500 MG TABLET 1000 MG PO (06:45)
[2022-05-17] MEDS: LACTATED RINGERS 1,000 ML 30 ML IV CONT ×2 (06:54→09:36)
[2022-05-17] MEDS: OXYMETAZOLINE HCL 0.05% NAS 15 ML BTL (*BKC) 1 SPRAY NASAL (06:54)
--- NOTE | 2022-05-17 07:02 | WPDANESEPPF ---
Anes - Initial Pre Proc Eval Procedure: Operation Date: 05/17/22 07:30 Proposed Procedures p Image Guided Bilateral Frontal Sinusotomy, Bilateral Ethmoidectomy, Bilateral Maxillary Antrostomy, Bilateral Turbinate Reduction - Renard Valencia MD s Septoplasty - Renard Valencia MD Date/Time: 05/17/22 07:02 Surgeon: Renard Valencia MD Pre Op Diagnosis: deviated septum, chronic sinusitis Patient Data Age: 42 Gender: M Height: 1.98 m Weight: 110.4 kg Last Vital Signs Temp 36.1 C L 05/17/22 06:50 Pulse 56 L 05/17/22 06:50 Resp 14 05/17/22 06:50 BP 125/79 05/17/22 06:50 Pulse Ox 100 05/17/22 06:50 O2 Del Method Room Air 05/17/22 06:50 Allergies Allergy/AdvReac Type Severity Reaction Status Date / Time shellfish derived Allergy Severe Difficulty Verified 05/17/22 06:54 Breathing Home Medications Medication Instructions Recorded Confirmed Type levocetirizine 5 mg tablet (Xyzal) 5 mg PO DAILY 07/17/19 05/10/22 History hydrochlorothiazide 12.5 mg capsule 12.5 mg PO QAM #90 caps 12/11/21 05/10/22 Rx aspirin 81 mg tablet,delayed 81 mg PO QAM #90 tabs 12/15/21 05/10/22 Rx release atorvastatin 20 mg tablet 20 mg PO DAILY #90 tabs 12/18/21 05/10/22 Rx potassium chloride 20 mEq 20 meq PO DAILY #90 tabs 12/18/21 05/10/22 Rx tablet,extended release amlodipine 10 mg tablet 10 mg PO DAILY #90 tabs 03/31/22 05/17/22 Rx losartan 100 mg tablet See Rx Instructions .Route 03/31/22 05/10/22 Rx .COMPLEX #90 tabs montelukast 10 mg tablet See Rx Instructions .Route 03/31/22 05/10/22 Rx .COMPLEX #90 tabs omeprazole 40 mg capsule,delayed See Rx Instructions .Route 03/31/22 05/10/22 Rx release .COMPLEX #90 caps fluticasone propionate 50 2 spray intranasal DAILY 05/10/22 05/10/22 History mcg/actuation nasal spray,suspension Patient hx anesthesia problems: none Family hx anesthesia problems: none Results Review: All pre-operative results and documents have been reviewed as part of the pre-operative evaluation. [facility] Past Medical History Medical History Chronic sinusitis GERD (gastroesophageal reflux disease) HTN (hypertension) TRACI on CPAP Sensorineural hearing loss (SNHL) of both ears Mild Surgical History Surgical History H/O hernia repair H/O sinus surgery 10/2018 History of esophageal dilatation History of nasal septoplasty Family History Family History Mother Hypertension Atrial fibrillation TIA (transient ischemic attack) Father Family history of cardiovascular disease Acute myocardial infarction, Onset Age: 45 Multiple AMI Lung cancer Sibling Testicular cancer Social History Social History Smoking packs per day: 1 Smoking cigarettes per day: 20.0 Years smoked: 10 Smoking pack-years: 10.00 Smoking status: Former smoker Tobacco type: cigarettes Second hand tobacco smoke exposure: No Smoking end date: 05/11/07 Additional smoking assessment comments: quit 15years ago Alcohol intake: current Drinks per week: 4 Alcohol use details: on weekends Substance use: former Substance use type: marijuana Last use: occasional, more than 15 years ago Living arrangements: with family Occupation/Education: occupation 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
--- NOTE | 2022-05-17 07:07 | PM.IMHP ---
H&P: HPI History of Present Illness Date/Time: 05/17/22 07:07 Chief Complaint: chronic sinusitis Narrative: Hx of sinuplasty, persistent pansinusitis, imaging confirmed, here for FESS with septoplasty/turbinoplasty Review of Systems Review of Systems: All systems reviewed & are unremarkable except as noted in HPI and below PMFSH Past Medical History Medical History Chronic sinusitis GERD (gastroesophageal reflux disease) HTN (hypertension) TRACI on CPAP Sensorineural hearing loss (SNHL) of both ears Mild Surgical History Surgical History H/O hernia repair H/O sinus surgery 10/2018 History of esophageal dilatation History of nasal septoplasty Family History Family History Mother Hypertension Atrial fibrillation TIA (transient ischemic attack) Father Family history of cardiovascular disease Acute myocardial infarction, Onset Age: 45 Multiple AMI Lung cancer Sibling Testicular cancer Social History Social History Smoking packs per day: 1 Smoking cigarettes per day: 20.0 Years smoked: 10 Smoking pack-years: 10.00 Smoking status: Former smoker Tobacco type: cigarettes Second hand tobacco smoke exposure: No Smoking end date: 05/11/07 Additional smoking assessment comments: quit 15years ago Alcohol intake: current Drinks per week: 4 Alcohol use details: on weekends Substance use: former Substance use type: marijuana Last use: occasional, more than 15 years ago Living arrangements: with family Occupation/Education: occupation 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 Gender identity (if verbalized by the patient): Male Sexual Orientation (if Verbalized by the Patient): Straight or Heterosexual Spiritual care concerns: No Meds Home Medications and Allergies Home Medications Medication Instructions Recorded Confirmed Type levocetirizine 5 mg tablet (Xyzal) 5 mg PO DAILY 07/17/19 05/10/22 History hydrochlorothiazide 12.5 mg capsule 12.5 mg PO QAM #90 caps 12/11/21 05/10/22 Rx aspirin 81 mg tablet,delayed 81 mg PO QAM #90 tabs 12/15/21 05/10/22 Rx release atorvastatin 20 mg tablet 20 mg PO DAILY #90 tabs 12/18/21 05/10/22 Rx potassium chloride 20 mEq 20 meq PO DAILY #90 tabs 12/18/21 05/10/22 Rx tablet,extended release amlodipine 10 mg tablet 10 mg PO DAILY #90 tabs 03/31/22 05/17/22 Rx losartan 100 mg tablet See Rx Instructions .Route 03/31/22 05/10/22 Rx .COMPLEX #90 tabs montelukast 10 mg tablet See Rx Instructions .Route 03/31/22 05/10/22 Rx .COMPLEX #90 tabs omeprazole 40 mg capsule,delayed See Rx Instructions .Route 03/31/22 05/10/22 Rx release .COMPLEX #90 caps fluticasone propionate 50 2 spray intranasal DAILY 05/10/22 05/10/22 History mcg/actuation nasal spray,suspension Allergies Allergy/AdvReac Type Severity Reaction Status Date / Time shellfish derived Allergy Severe Difficulty Verified 05/17/22 06:54 Breathing Vital Signs Vital Signs - 24 hr 05/17/22 06:50 Temperature 36.1 C L Pulse Rate 56 L Respiratory Rate 14 Blood Pressure 125/79 Pulse Oximetry 100 Oxygen Delivery Room Air Exam Narrative: Chronic pansinusitis, septal deviation, turbinate hypertrophy, rest of exam wnl. Assessment and Plan Assessment and plan (1) Chronic sinusitis: Code(s): J32.9 - Chronic sinusitis, unspecified Status: Acute Assessment and Plan: Gelacio comes in today for endoscopic sinus surgeyr, septoplasty and turbinoplasty. r/b/a reviewed, pt understands and agrees to proceed, refer to outpt H&P for full details.
--- NOTE | 2022-05-17 07:09 | WPDHPUPDATE1 ---
History and Physical Update Update Date/Time: 05/17/22 07:09 History and Physical has been reviewed, including an updated exam of the patient. There are NO changes in the patient's condition. Risks, benefits, and alternatives have been discussed and questions answered. Patient agrees to proceed with procedure.
[2022-05-17] MEDS: LIDO 1%/EPINEPHRINE 1:100,000 50 ML VIAL INFILTRATE (07:23)
[2022-05-17] MEDS: ceFAZolin 2 GM/D5W 50 ML 2 GM/50 ML BAG IVPB (07:23)
--- NOTE | 2022-05-17 09:13 | W.PM.PROC2 ---
Procedure Note - Detailed Date of Procedure 05/17/22 Pre-op Diagnosis deviated septum, chronic sinusitis Post-op Diagnosis Same Procedure Performed Bilateral frontal sinusotomy, sphenoidotomy with tissue removal, total ethmoidectomy, maxillary antrostomy with tissue removal, revision septoplasty and turbinoplasty, image guided surgery Surgeon Renard Valencia MD Anesthesia General Indications Nasal polyps, deviated septum Findings Hx of prev septoplasty with persistent high left septal deviation. Bilateral polyps in meatal region and superior turbinates. Chronic infection and polypoid material in bilateral ethmoid, frontal sphenoid and maxillary sinuses. Description of Procedure On the date of procedure the patient was met in the preoperative area and risk and benefits of the procedure reviewed with the patient as documented in the H&P and they elected to proceed with surgery. Patient was brought back to the operating room by the anesthesia team and underwent general endotracheal anesthesia. Once an adequate plane of anesthesia was obtained a timeout was performed to assure the patient identification the patient here to be performed were correct. They were.The patient was then prepped and draped in the normal fashion for endoscopic sinus surgery. The diffusion image guidance system was calibrated and used for the entire case. Afrin-soaked pledgets were placed in the nasal cavities bilaterally. The entire case was performed under endoscopic visualization. The left side was narrowed due to septal deviation.? Thus, septoplasty was required.? A left hemitransfixion incision was made in the left caudal septum and a mucoperichondrial flap was elevated in the usual fashion. The flap was elevated under endoscopic visualization and the remainder of the case was performed with endoscopic assistance. Using a D-knife, an incision was made through the cartilaginous septum with care to preserve the appropriate caudal and dorsal ?L-strut? of cartilage. The cartilage was then disarticulated from the bony-cartilaginous junction and the deviated cartilage was removed. Further deviated bone and cartilage was removed from the maxillary crest and posterior bony septum with care to avoid injury to the mucoperichondrial flap using a combination of dissection and Sammy-Dilcia forceps. Once this was completed, the hemitransfixion incision was closed using simple interrupted 4-0 chromic suture. A quilting stitch to reapproximate the mucoperichondrial flaps was then placed using 4-0 plain gut suture on a Piero needle. Next, attention was first directed towards the right side. The middle turbinate was medialized and the osteomeatal complex was identified with a garrick probe. Using a 90 degree backbiter, the uncinate process was reflected anteriorly and removed using a combination of sharp and powered dissection. The maxillary antrostomy was then created and widened by identifying the natural ostia and opening the sinus with straight radha-cut forceps, backbiter, and microdebrider. Polyp tissue encountered was removed with microdebrider. Continuing with the microdebrider, the anterior ethmoid bulla was opened. Careful dissection was carried out posteriorly, through the basal lamella and posterior ethmoid cells until the sphenoid rostrum was identified. A Glenn suction bluntly identified the sphenoid os and the opening was widened with microdebrider and mushroom punch to 5mm. Polyp tissue present within both the maxillary and sphenoid sinuses requiring tissue removal to address. Using an image guided curved suction as well as J-curette, the posterior most ethmoid cell was identified and the ethmoids were bluntly fractured and dissected from posterior to anterior along the base of the skull. The remaining bone fragments were removed with appropriate curved instruments and microdebrider.? Lastly, image guided frontal suction and sinus seeker were used to identify the frontal sinus and enter it.? The
--- NOTE | 2022-05-17 09:48 | SUR.PHASEI ---
0947: Face tent removed.
[2022-05-17] MEDS: ONDANSETRON INJ 4 MG/2 ML VIAL IV PUSH (10:23)
== END 2022-05-17 11:10 | disposition home or self-care (01) ==
PROVIDERS: PCP Family Medicine; Visit Provider Otolaryngology
PROC: (CPT 31276; principal; 2022-05-17 07:30)
PROC: (CPT 30520; 2022-05-17 07:30)
DX: J32.2 Chronic ethmoidal sinusitis (principal); J32.1 Chronic frontal sinusitis; J32.3 Chronic sphenoidal sinusitis; J32.0 Chronic maxillary sinusitis; J33.9 Nasal polyp, unspecified; J34.2 Deviated nasal septum; I10 Essential (primary) hypertension; G47.33 Obstructive sleep apnea (adult) (pediatric); K21.9 Gastro-esophageal reflux disease without esophagitis; Z79.82 Long term (current) use of aspirin; Z87.891 Personal history of nicotine dependence
CPT/HCPCS: 31276; 31259; 31267; 61782; 30520; 30140; 36415; 80048; A9270; J0330; J0690; J1100; J1170; J2250; J2370; J2405; J2704; J3010; J7120